=== PATIENT | female | born 1945 | race Caucasian/White ===

== ENCOUNTER → 2017-05-09 | Outpatient (CLI) | payer OTHER ==
[2015-04-18 11:00] VITALS: BP 112/64
[~2017-05-09] MED LIST: BUPR300T3 PO; LANS30CA PO; POTA20TA12 PO; SIMV10TA3 PO
--- NOTE | 2017-05-09 09:41 | KCIC ---
EXAM: Dual energy x-ray absorptiometry (DEXA). HISTORY: Postmenopausal female presents for osteoporosis screening. COMPARISON: None. TECHNIQUE: Dual energy x-ray absorptiometry of the lumbar spine and left hip was performed. Calculation of bone mineral density based on standard deviations above or below the expected young adult normal value (T-score) was completed. FINDINGS: The average bone mineral density in the 1st through 4th lumbar vertebrae is 1.064 g/cmxcm, corresponding with a T-score of 0.2. The average total bone mineral density in the left hip is 0.864 g/cmxcm, corresponding with a T-score of -0.6. IMPRESSION: Normal bone mineral density. Note: Definitions established by the [employer] Organization: 1. Normal: T-score is -1.0 or above. 2. Osteopenia: T-score is between -1.0 and -2.5 . 3. Osteoporosis: T-score is -2.5 or below. Electronically signed by: Lety Nur MD (05/09/2017 9:38 AM) [id number]
== END | disposition home or self-care (01) ==
LOC: KCIC DEXA 08:47
DX: Z13.820 Encounter for screening for osteoporosis (principal); Z78.0 Asymptomatic menopausal state
CPT/HCPCS: 77080